=== PATIENT | female | born 1945 | race Caucasian/White ===

== ENCOUNTER 2019-10-16 22:44 | Observation (INO) ==
[2019-10-17] MEDS ORDERED: ONDANSETRON 4 MG/2 ML VIAL IV PRN (00:58)
[2019-10-17] MEDS ORDERED: GLUCAGON 1 MG VIAL IM PRN (00:58)
[2019-10-17] MEDS ORDERED: DEXTROSE 10% 250 ML BAG IV PRN (01:05)
[2019-10-17 06:35] LABS: Basophils # 0.1 10*3/uL (0.0-0.2); Basophils % 0.7 % (0.0-0.8); Eosinophils # 0.1 10*3/uL (0.0-0.87); Eosinophils % 0.9 % (0.00-10.9); Hematocrit 44.8 VOL% (35.7-47.0); Hemoglobin 14.6 GM/DL (12.0-16.0); Immature Granulocytes % 0.5 %; Immature Granulocytes Absolute 0.05 #; Lymphocytes # 2.7 10*3/uL (1.4-4.0); Lymphocytes % 26.6 % (21.3-54.2); Mean Corpuscular HGB Conc 32.6 GM/DL (32-36); Mean Corpuscular Volume 85.5 FL (87-102); Mean Platelet Volume 9.7 FL (9.6-12.0); Monocytes % 8.5 % (1.7-12.7); Neutrophils % 62.8 % (38.7-73.9); Platelet Count 226 T/CUMM (130-400); Red Blood Count 5.24 MC/CUMM (3.8-5.5); Red Cell Distribution Width 13.9 % (9.3-17.3); White Blood Count 10.2 T/CUMM (4-12)
[2019-10-17 07:22] LABS: Albumin 3.2 G/DL (3.4-5.0); Bilirubin,Total 0.8 MG/DL (0.2-1.0); Calcium 9.3 MG/DL (8.5-10.1); Osmolality,Calculated 267.2 MOS/KG (273-304); Risk Ratio 2.89; Total Protein 6.9 G/DL (6.4-8.3); VLDL CHOLESTEROL 25.6 MG/DL
[2019-10-17] MEDS ORDERED: INSULIN REGULAR 100 UNIT/ML SUBCUT SCH (07:30)
[2019-10-17] MEDS ORDERED: CYCLOBENZAPRINE 10 MG TABLET PO PRN (08:07)
[2019-10-17 08:18] VITALS: BP 107/67
[2019-10-17] MEDS ORDERED: LOSARTAN 50 MG TABLET PO SCH (09:00)
[2019-10-17] MEDS ORDERED: ENOXAPARIN 40 MG/0.4 ML SYRINGE SUBCUT SCH (09:00)
[2019-10-17] MEDS ORDERED: PANTOPRAZOLE 40 MG TABLET PO SCH ×2 (09:00)
[2019-10-17] MEDS ORDERED: hydroCHLOROthiazide 12.5 MG CAPSULE PO SCH (09:00)
[2019-10-17] MEDS ORDERED: FLUoxetine 20 MG CAPSULE PO SCH (09:00)
[2019-10-17 10:17] LABS: Troponin I < 0.015 NG/ML (0.00-0.045)
[2019-10-17 11:51] LABS: Troponin I < 0.015 NG/ML (0.00-0.045)
[2019-10-17] MEDS ORDERED: SUCRALFATE 1 GM TABLET PO SCH (12:00)
[2019-10-17] MEDS ORDERED: PRAMIPEXOLE 0.25 MG TABLET PO SCH (21:00)
== END 2019-10-17 12:38 | disposition home or self-care (01) ==
LOC: N.TELEN → SUATTDRO 10-17 00:07
PROVIDERS: ADMIT Internal Medicine; ATTEND Family Medicine